=== PATIENT | male | born 1945 | race Caucasian/White ===

== ENCOUNTER 2023-05-24 07:08 | Day surgery (SDC) | payer MEDICARE, OTHER, SELFPAY ==
[2023-05-10 10:45] VITALS: BMI 27.7
[2023-05-24] VITALS (10 sets, daily range): BP systolic 86–131; BP diastolic 38–78; BMI 27.7
[2023-05-24] MEDS: TYLENOL 1000 MG PO (08:10)
[2023-05-24] MEDS: NORMOSOL-R 1000 IV (08:12)
== END 2023-05-24 12:35 | disposition home or self-care (01) ==
LOC: SDS 07:08
PROVIDERS: ATTENDING PHYSICIAN Surgery; FAMILY PHYSICIAN Internal Medicine
DX: K40.90 Unilateral inguinal hernia, without obstruction or gangrene, not specified as recurrent (principal); Z79.01 Long term (current) use of anticoagulants; Z86.73 Personal history of transient ischemic attack (TIA), and cerebral infarction without residual deficits
CPT/HCPCS: 49650; C1781

== ENCOUNTER → 2023-06-17 06:55 | Outpatient (REF) | payer MEDICARE, OTHER, SELFPAY | LOC: RAD 06:55 | PROVIDERS: ATTENDING PHYSICIAN Internal Medicine Critical Care Medicine; FAMILY PHYSICIAN Internal Medicine | DX: R91.1 Solitary pulmonary nodule (principal) | CPT/HCPCS: 71250 ==

== ENCOUNTER → 2024-04-09 08:02 | Outpatient (REF) | payer MEDICARE, OTHER, SELFPAY | LOC: RCS 08:02 | PROVIDERS: ATTENDING PHYSICIAN Internal Medicine Cardiovascular Disease; FAMILY PHYSICIAN Internal Medicine | DX: I35.1 Nonrheumatic aortic (valve) insufficiency (principal); I77.810 Thoracic aortic ectasia | CPT/HCPCS: 93306 ==

== ENCOUNTER → 2024-05-25 11:31 | Outpatient (REF) | payer MEDICARE, OTHER, SELFPAY | LOC: HWRAD 11:31 | PROVIDERS: ATTENDING PHYSICIAN Internal Medicine Critical Care Medicine; FAMILY PHYSICIAN Internal Medicine | DX: R91.1 Solitary pulmonary nodule (principal) | CPT/HCPCS: 71250 ==